=== PATIENT | male | born 1970 | race Caucasian/White ===

== ENCOUNTER 2017-03-20 18:01 | Emergency (ER) | payer BC ==
--- NOTE | 2017-03-20 19:42 | RAD ---
INDICATION: Foreign body. COMPARISON: There are no prior studies available for comparison. TECHNIQUE: AP and lateral images of the soft tissue of the neck were obtained. FINDINGS: The epiglottis and aryepiglottic folds appear to be within normal limits. The retropharyngeal soft tissues appear normal. The airway appears patent. Air is noted within the esophagus. No radiopaque foreign body is seen. IMPRESSION: NO RADIOPAQUE FOREIGN BODY IS SEEN.
[2017-03-20] MEDS ORDERED: LORazepam INJ* 2 MG/ML 1 ML VIAL IV ONE (20:32)
[2017-03-20] MEDS ORDERED: LORazepam INJ* 2 MG/ML 1 ML VIAL IM ONE (20:33)
[2017-03-20] MEDS ORDERED: Famotidine IV* 10 MG/ML 2 ML (20 mg) IV SLOW PU ONE (22:07)
[2017-03-20] MEDS ORDERED: diPHENhydraMINE IV* 50 MG/ML 1 ml VIAL (BENADRYL) IV ONE ×2 (22:07→22:48)
[2017-03-20] MEDS ORDERED: Dexamethasone IV* 4 MG/ML 1 ML (4 MG) IV SLOW PU ONE (22:08)
[2017-03-20 23:00] LABS: Hematocrit 45 % (42-52); Hemoglobin 14.8 g/dl (14.0-18.0); Mean Corpuscular HGB Conc 33 g/dl (31-36); Mean Corpuscular Hemoglobin 28 pg (27-31); Mean Corpuscular Volume 85 fL (80-94); Mean Platelet Volume 9 um3 (7.4-10.4); Red Blood Count 5.32 10^6/ul (4.0-5.4); Red Cell Distribution Width 14 % (10.5-15); White Blood Count 7.1 10^3/ul (3.5-10.8)
[2017-03-20 23:01] LABS: Albumin 4.3 g/dL (3.2-5.2); BUN/Creatinine Ratio 8.3 (8-20); Calcium 9.4 mg/dL (8.6-10.3); EGFR African American 83.5 (>60); EGFR Non-African American 64.9 (>60); Globulin 3.4 g/dL (2-4); Potassium 3.8 mmol/L (3.5-5.0); Total Bilirubin 0.5 mg/dL (0.2-1.0); Total Protein 7.7 g/dL (6.4-8.9)
[2017-03-20] MEDS ORDERED: LORazepam TAB(*) 1 MG PO ONE (23:45)
[2017-03-21 00:19] VITALS: BP 107/57
--- NOTE | 2017-03-21 10:57 | ED ---
Pepe Sanchez Erika, scribed for Leroy Jay MD on 03/20/17 at 2021 . Throat Pain/Nasal Congestion - HPI Summary HPI Summary: Patient is a 46-year-old male presenting to the ED with a CC of discomfort in his nasopharynx. He reports that symptoms started today after he took his Anne at 16:30 and had difficulty swallowing the pill. At 16:45 he took Benadryl as well, and states it felt as if it became lodged in the back of his throat. Pt states dysphagia, so has been spitting, and states his spit was at first pink after taking the Benadryl. Patient denies a foreign body feeling lower in his throat or chest. Patient reports that he feels as if the area is swollen, and states he feels a sticky mucus there. Patient states he has had similar symptoms in the past after eating. He does note episodes of chills, myalgias, and arthralgias a few days ago, but none since. Hx TMJ. - History of Current Complaint Chief Complaint: EDGeneral Time Seen by Provider: 03/20/17 18:19 Hx Obtained From: Patient Onset/Duration: Sudden Onset, Lasting Hours, Still Present Severity: Moderate Associated Signs And Symptoms: Positive: Dysphagia - Allergies/Home Medications Allergies/Adverse Reactions: Allergies Allergy/AdvReac Type Severity Reaction Status Date / Time Doxycycline AdvReac Intermediate Nausea And Verified 04/26/15 08:21 Vomiting PMH/Surg Hx/FS Hx/Imm Hx Endocrine/Hematology History: Denies: Hx Diabetes Cardiovascular History: Denies: Hx Hypertension, Hx Pacemaker/ICD Sensory History: Denies: Hx Hearing Aid Psychiatric History: Reports: Hx Panic Disorder - PANIC ATTACKS WHEN HE GETS STRESSED - Surgical History Surgery Procedure, Year, and Place: HERNIA. VERICOSE VEIN REMOVAL - Immunization History Date of Tetanus Vaccine: unknown Date of Influenza Vaccine: UTD Infectious Disease History: No Infectious Disease History: Denies: Traveled Outside the [place] in Last 30 Days - Family History Known Family History: Positive: Other - Colon CA - Social History Alcohol Use: None Hx Substance Use: No Substance Use Type: Reports: None Hx Tobacco Use: Yes Smoking Status (MU): Former Smoker Review of Systems ENT: Other - foreign body sensation nasopharynx Negative: Chest Pain All Other Systems Reviewed And Are Negative: Yes Physical Exam Triage Information Reviewed: Yes Vital Signs On Initial Exam: Initial Vitals Temp Pulse Resp BP Pulse Ox 98.1 F 63 22 126/67 100 03/20/17 18:03 03/20/17 18:03 03/20/17 18:03 03/20/17 18:03 03/20/17 18:03 Vital Signs Reviewed: Yes Appearance: Positive: Well-Appearing, No Pain Distress Skin: Positive: Warm, Skin Color Reflects Adequate Perfusion, Dry Head/Face: Positive: Normal Head/Face Inspection Eyes: Positive: Normal ENT: Positive: Normal ENT inspection, Pharynx normal Neck: Positive: Supple, Nontender Respiratory/Lung Sounds: Positive: Clear to Auscultation, Breath Sounds Present Cardiovascular: Positive: RRR Abdomen Description: Positive: Nontender, Soft Bowel Sounds: Positive: Present Musculoskeletal: Positive: Normal Neurological: Positive: Normal Psychiatric: Positive: Affect/Mood Appropriate - Harvey Coma Scale Coma Scale Total: 15 Diagnostics - Vital Signs Vital Signs Temp Pulse Resp BP Pulse Ox 03/20/17 18:21 20 03/20/17 18:13 98.1 F 63 22 126/67 100 03/20/17 18:03 98.1 F 63 22 126/67 100 - Laboratory Lab Results: Lab Results 03/20/17 03/20/17 Range/Units 22:30 22:30 WBC 7.1 (3.5-10.8) 10^3/ul RBC 5.32 (4.0-5.4) 10^6/ul Hgb 14.8 (14.0-18.0) g/dl Hct 45 (42-52) % MCV 85 (80-94) fL MCH 28 (27-31) pg MCHC 33 (31-36) g/dl RDW 14 (10.5-15) % Plt Count 194 (150-450) 10^3/ul MPV 9 (7.4-10.4) um3 Neut % (Auto) 68.4 (38-83) % Lymph % (Auto) 23.5 L (25-47) % Refugio % (Auto) 5.8 (1-9) % Eos % (Auto) 1.5 (0-6) % Baso % (Auto) 0.8 (0-2) % Absolute Neuts (auto) 4.9 (1.5-7.7) 10^3/ul Absolute Lymphs (auto) 1.7 (1.0-4.8) 10^3/ul Absolute Monos (auto) 0.4 (0-0.8) 10^3/ul Absolute Eos (auto) 0.1 (0-0.6) 10^3/ul Absolute Basos (auto) 0.1 (0-0.2) 10^3/ul Absolute Nucleated RBC 0.04 10^3/ul Nucleated RBC % 0.6 Sodium 139 (133-145) mmol/L Potassium 3.8 (3.5-5.0) mmol/L Chloride 104 (101-111) mmol/L Carbon Dioxide 28 (22-32) mmol/L Anion Gap 7 (2-11) mmol/L BUN 10 (6-24) mg/dL Creatinine 1.20 H (0.67-1.17) mg/dL Est GFR ( Amer) 83.5 (>60) Est GFR (Non-Af Amer) 64.9 (>60) BUN/Creatinine Ratio 8.3 (8-20) Glucose 90 (70-100) mg/dL Calcium 9.4 (8.6-10.3) mg/dL Total Bilirubin 0.50 (0.2-1.0) mg/dL AST 21 (13-39) U/L ALT 21 (7-52) U/L Alkaline Phosphatase 54 (34-104) U/L Total Protein 7.7 (6.4-8.9) g/dL Albumin 4.3 (3.2-5.2) g/dL Globulin 3.4 (2-4) g/dL Albumin/Globulin Ratio 1.3 (1-3) Result Diagrams: 03/20/17 22:30 03/20/17 22:30 Lab Statement: Any lab studies that have been ordered have been reviewed, and results considered in the medical decision making process. - Radiology Neck Soft Tissue XR Radiology Interpretation Completed By: Radiologist - IMPRESSION: NO RADIOPAQUE FOREIGN BODY IS SEEN. Re-Evaluation - Re-Evaluation First Eval Re-Evaluation Time: 20:33 Comment: Discussed negative XR result with patient. Patient agrees with plan for IM Ativan Second Eval Re-Evaluation Time: 22:06 Comment: Patient still reports he is unable to swallow. Pt states he believes symptoms are due to allergic reaction EENT Course/Dx - Course Course Of Treatment: I'm not sure what is going on with Mr. Aquino. On initial evaluation, he was continuously spitting saliva into a bag. His pasoterior pharynx was normal in appearaance and his exterior architecture felt normal. He had no wheezes or stridor.He felt that he may have an allergic reaction that made his throat swell and caused his benedryl to get stuck. A plain film revealed normal looking structures and I had another discussion with him. At that point he felt that he might have muscle spasms and requested a mucle relaxant and lorazepam had worked for him in the past. I felt that this was a good idea as he was quite anxiojus as well. About 40 minutes after IM ativan, I again had a long discussion with him. HE was not much better and I wasn't sure what we could be missing. We had no GI or ENT coverage and would not be able to take an endoscoopic look so i recommended that we start an IV and treat him with the usual alleric medications and get a CT of the soft tissues of the neck. He aggreed but by the time the RN got in the room with the IV and meds, he was feeling better, able to drink 2 cups of water and requesting D/C with ativan. I don't think anything dangerous is going on. - Diagnoses Provider Diagnoses: Dysphagia, Anxiety Discharge - Discharge Plan Condition: Stable Disposition: HOME Patient Education Materials: Dysphagia (ED) Referrals: Pedrito Gibson MD [Primary Care Provider] - Additional Instructions: Please follow up with your PCP. The documentation as recorded by the Pepe lackey Erika accurately reflects the service I personally performed and the decisions made by me, Leroy Jay MD.
== END 2017-03-21 00:18 | disposition home or self-care (01) ==
LOC: ED 18:01
DX: R13.10 Dysphagia, unspecified (principal); F41.1 Generalized anxiety disorder; Z87.891 Personal history of nicotine dependence
CPT/HCPCS: 36415; 70360; 80053; 85025; 96374; 96375; 99282; A9270-GY; J1100; J1200; J2060

== ENCOUNTER 2019-05-16 16:33 | Emergency (ER) | payer BC ==
[2019-05-16 17:05] LABS: ABS Basophils 0.1 10^3/ul (0-0.2); ABS Eosinophils 0.1 10^3/ul (0-0.6); ABS Lymphocytes 1.4 10^3/ul (1.0-4.8); ABS Monocytes 0.4 10^3/ul (0-0.8); ABS Neutrophils 2.8 10^3/ul (1.5-7.7); Eosinophil % 1.9 %; Hematocrit 44 % (42-52); Hemoglobin 14.6 g/dL (14.0-18.0); Lymphocyte % 29.2 %; Mean Corpuscular HGB Conc 33 g/dL (31-36); Mean Corpuscular Hemoglobin 28 pg (27-31); Mean Corpuscular Volume 86 fL (80-94); Mean Platelet Volume 8.7 fL (7.4-10.4); Platelet Count 179 10^3/uL (150-450); Red Blood Count 5.16 10^6 /uL (4.18-5.48); Red Cell Distribution Width 14 % (10-15); White Blood Count 4.7 10^3/uL (3.5-10.8)
--- OUTSIDE RECORDS SUMMARY | 2019-05-16 17:09 | XMS REPORT | Continuity of Care Document ---
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 Payers Date Identification Numbers Payment Provider Subscriber Effective: 2018 Policy Number: [id number] [facility] [employer] Aquino PayID: [id number] [address] [address] [place] [address] Problems Active Problems Provider Date Allergy to other foods Reji Almaraz MD Onset: 04/10/2019 Uncomplicated moderate persistent asthma Reji Almaraz MD Onset: Eosinophilic esophagitis Reji Almaraz MD Onset: 04/10/2019 Family History Date Family Member(s) Observation Comments General No Current Problems Social History Type Date Description Comments Sex Unknown Home Environment Has a window air conditioner Home Environment Unfinished Basement Home Environment The floors are wood Home Environment Negative For Uses hot water heating Home Environment Radiator Heat Smoke-Free 04/10/2019 Work is smoke-free Pets several cats Tobacco Use Start: Unknown End: Unknown Patient is a former smoker Smoking Status Reviewed: 04/10/19 Patient is a former smoker Allergies, Adverse Reactions, Alerts Active Allergies Reaction Severity Comments Date Almonds 03/30/2019 Hydrogenated Coconut Oil 03/30/2019 Doxycycline Free Text 03/30/2019 Lactose 03/30/2019 Medications Active Medications SIG Qnty Indications Ordering Provider Date Singulair 10mg by mouth 30tabs Reji Llanos 04/10/2019 10mg Tablets daily at bedtime MD Sung Ranitidine HCL take 1-2 tablets 60tabs Foorpessin, 02/16/2019 150mg at bedtime. Michaela MD Tablets Miralax Use 1 capful daily 1units Foorpessin, 09/12/2018 3350NF Powder or as needed for Michaela MD constipation. Anne Allergy 1 po bid prn 60tabs Pedrito Gibson, 12/13/2017 60mg allergy symptoms MD Tablets Sumatriptan 1 spray in nostril 1units G43.109 Pedrito Gibson, 06/08/2016 20mg/Act prn for migraine. MD Solution may repeat in 2 hours. Lorazepam 1/4 -1/2 twice a 30tabs Pedrito Gibson, 06/18/2015 0.5mg Tablets day as needed for MD anxiety Imitrex take one tablet by 9tabs G43.109 Pedrito Gibson, 05/10/2015 50mg Tablets mouth at first MD sign of headache - may repeat dose in 2 hours Epipen 2-Jonn use as directed Unknown 0.3mg/0.3ML Solution Auto-Inject Levocetirizine Daily Unknown Dihydrochloride 5mg Tablets Clotrimazole Unknown 1% Cream Epinephrine Inject One Pen For Unknown 0.3mg/0.3ML Anaphylactic Solution Auto-Inject Reaction And Repeat If Needed Call 911 Vital Signs Date Vital Result Comment 04/10/2019 3:22pm BP Systolic 96 mmHg BP Diastolic 65 mmHg Height 64 inches 5'4" Weight 125.00 lb BMI (Body Mass Index) 21.5 kg/m2 Heart Rate 66 /min Respiratory Rate 18 /min O2 % BldC Oximetry 98 % Procedures Date Code Description Status 04/10/2019 01141 Nitric Oxide Gas Determination Completed 04/10/2019 94670 Allergy Tests Percutaneous W/ Allergenic Extracts Completed 04/10/2019 64249 Spirometry Completed Encounters Type Date Location Provider Dx Diagnosis Office Visit 04/10/2019 Sathish Almaraz, K20.0 Eosinophilic 3:00p esophagitis Z91.018 Allergy to other foods J45.40 Moderate persistent asthma, uncomplicated Plan of Treatment Future Appointment(s):05/08/2019 2:00 pm - Freda Pike NP at [facility]/19/ 2019 1:30 pm - ELEANOR Rogers at [facility]
--- OUTSIDE RECORDS SUMMARY | 2019-05-16 17:09 | XMS REPORT | Continuity of Care Document ---
:1970 External Reference #:[id number] Author Name Miranda Odom Care Team Providers Name Role Phone Michaela Lopez MD Care Team Information Curtain Drier Unavailable Payers Date Identification Numbers Payment Provider Subscriber Effective: 2018 Policy Number: [id number] [facility] [employer] Aqu[employer] PayID: [id number] [address] [address] [place] [address] Problems Active Problems Provider Date Allergy to [...] is a former smoker Smoking Status Reviewed: 05/06/19 Patient is a former smoker Allergies, Adverse [...] 911 Vital Signs Date Vital Result Comment 05/08/2019 2:18pm BP Systolic 112 mmHg BP Diastolic 64 mmHg Height 64 inches 5'4" Weight 125.00 lb BMI (Body Mass Index) 21.5 kg/m2 Heart Rate 67 /min Respiratory Rate 16 /min Body Temperature 96.5 F O2 % BldC Oximetry 98 % 04/10/2019 3:22pm BP Systolic 96 mmHg BP Diastolic 65 mmHg Height 64 inches 5'4" Weight 125.00 lb BMI (Body Mass Index) 21.5 kg/m2 Heart Rate 66 /min Respiratory Rate 18 /min O2 % BldC Oximetry 98 % Procedures Date Code Description Status 04/10/2019 43094 Nitric Oxide Gas Determination Completed 04/10/2019 93404 Allergy Tests Percutaneous W/ Allergenic Extracts Completed 04/10/2019 68011 Spirometry Completed Encounters Type Date Location Provider Dx Diagnosis Office Visit 05/06/2019 1:30p ELEANOR Bryant K20.0 Eosinophilic esophagitis Z91.018 Allergy to other foods J45.40 Moderate persistent asthma, uncomplicated Office Visit 04/10/2019 3:00p Sathish Llanos K20.0 Eosinophilic MD Sung esophagitis Z91.018 Allergy to other foods J45.40 Moderate persistent asthma, uncomplicated Plan of Treatment 05/06/2019 - JONN Rogers20.0 Eosinophilic ujsgfhxkjpoC39.018 Allergy to other foodsComments:Patient tested negative at first read to all 24 food substances placed on his skin. Patient to return in 2 days (48 hours) for final read of his skin patch test. Patient to continue to avoid antihistamines until final read. Patient to avoid direct water (showering) on his back until after final patch read.J45.40 Moderate persistent asthma, uncomplicated
--- OUTSIDE RECORDS SUMMARY | 2019-05-16 17:09 | XMS REPORT | Continuity of Care Document ---
:1970 External Reference #:[id number] Author Name Reji Almaraz MD Address [address] [facility] [facility] [address] [place] [address] Care Team Providers Name Role Phone Michaela Lopez MD Care Team Information Orthodontic Band Maker Unavailable Payers Date Identification Numbers Payment Provider Subscriber Effective: 2018 Policy Number: [id number] [facility] [employer] Aquino PayID: [id number] [address] [address] [place] [address] Problems Active Problems Provider Date Allergy to [...] Llanos 04/10/2019 10mg Tablets daily at bedtime Almaraz, MD Ranitidine HCL take 1-2 tablets 60tabs Foorpessin, [...] Solution may repeat in 2 hours. Lorazepam /4 -1/2 twice a 30tabs Pedrito Gibson, 06/18/2015 [...] % Procedures Date Code Description Status 04/10/2019 49248 Nitric Oxide Gas Determination Completed 04/10/2019 75743 Allergy Tests Percutaneous W/ Allergenic Extracts Completed 04/10/2019 04462 Spirometry Completed Encounters Type Date Location Provider Dx Diagnosis Office Visit 05/06/2019 1:30p ELEANOR Bryant K20.0 Eosinophilic esophagitis Z91.018 Allergy to other foods J45.40 Moderate persistent asthma, uncomplicated Office Visit 04/10/2019 3:00p Sathish Llanos K20.0 Yvonne Almaraz MD esophagitis Z91.018 Allergy to other foods J45.40 Moderate persistent asthma, uncomplicated Plan of Treatment Future Appointment(s):05/08/2019 2:00 pm - Freda Pike NP at [id number] - David Dean, PAK20.0 Eosinophilic apanmthtghyI43.018 Allergy to other foodsComments:Patient tested negative at [...]
--- OUTSIDE RECORDS SUMMARY | 2019-05-16 17:09 | XMS REPORT | Continuity of Care Document ---
:1970 External Reference #:[id number] Author Name Reji Almaraz MD Address [address] [place] [address] Care Team Providers Name Role Phone Michaela Lopez MD Care Team Information Beater Lead Unavailable Payers Date Identification Numbers Payment Provider Subscriber Effective: 2018 Policy Number: [id number] [facility] [employer] Aqu[employer] PayID: [id number] [address] [address] [place] [address] Problems Active Problems Provider Date Allergy to [...] Medications SIG Qnty Indications Ordering Provider Date Ventolin HFA inhale 2 puffs by ashok J45.40 Freda Pike NP 05/08/2019 inhalation route 108(90Base) mcg/Act every 4 hours as Aerosol needed1 Singulair 10mg by mouth 30tabs Christopher A. 04/10/2019 10mg Tablets daily at bedtime MD [...] /min O2 % BldC Oximetry 98 % Results Test Date Facility Test Result H/L Range Note Order 05/08/2019 [facility] Nitric Oxide <pending> Order 05/08/2019 [facility] Nitric Oxide <pending> Procedures Date Code Description Status 05/08/2019 57864 Allergy Test, Patch Or Application Completed 05/08/2019 92659 Nitric Oxide Gas Determination Completed 04/10/2019 97424 Nitric Oxide Gas Determination Completed 04/10/2019 19273 Allergy Tests Percutaneous W/ Allergenic Extracts Completed 04/10/2019 99775 Spirometry Completed Encounters Type Date Location Provider Dx Diagnosis Office Visit 05/08/2019 Sathish Pike NP K20.0 Eosinophilic 2:00p esophagitis Z91.018 Allergy to other foods J45.40 Moderate persistent asthma, uncomplicated Office Visit 05/06/2019 1:30p ELEANOR Bryant K20.0 Eosinophilic esophagitis Z91.018 Allergy to other foods J45.40 Moderate persistent asthma, uncomplicated Office Visit 04/10/2019 3:00p Sathish Llanos K20.0 Eosinophilic MD Sung esophagitis Z91.018 Allergy to other foods J45.40 Moderate persistent asthma, uncomplicated Plan of Treatment 05/08/2019 - Freda Pike NPK20.0 Eosinophilic esophagitisComments:No positives per [facility]. Follow up with GI. Continue current medical plan. The restZ91.018 Allergy to other gziovA69.40 Moderate persistent asthma, uncomplicatedNew Medication:Ventolin HFA 108(90 Base) mcg/Act - inhale 2 puffs by inhalation route every 4 hours as ithjya2Rleatwlr:Niox today 43ppb. Improved. Rescue inhaler ventolin ii inhalations every 4-6 hours as needed.Follow-up 6 monthsGreater than 50% of the 10-minute visit was spent in [id number] discussion of the testing results and treatment options.
[2019-05-16 17:10] LABS: INR 1.11 (0.82-1.09)
[2019-05-16 17:24] LABS: Albumin 4.4 g/dL (3.2-5.2); Albumin/Globulin Ratio 1.5 (1-3); BUN/Creatinine Ratio 5.5 (8-20); Calcium 9.3 mg/dL (8.6-10.3); EGFR African American 85.7 (>60); EGFR Non-African American 70.9 (>60); Potassium 3.6 mmol/L (3.5-5.0); Total Bilirubin 0.5 mg/dL (0.2-1.0); Total Protein 7.4 g/dL (6.4-8.9)
--- NOTE | 2019-05-16 20:37 | ED ---
Complex/Multi-Sys Presentation - HPI Summary HPI Summary: A 49 y/o male presents to [facility] with a chief complaint of chest tightness today. He notes that when he stands up he has chest tightness and SOB. He was recently diagnosed with asthma. He also notes that his chest tightness radiates to his back. At triage he rated his pain as a 1/10 in severity. He is taking Singulair for asthma and Lorazepam for anxiety as needed. He notes that Lorazepam alleviates his chest tightness. - History Of Current Complaint Chief Complaint: EDWeakness Time Seen by Provider: 05/16/19 20:26 Hx Obtained From: Patient Onset/Duration: Sudden Onset, Lasting Hours, Still Present Timing: Intermittent, Lasting: - upon standing Severity Currently: Mild Severity Initially: Mild Location: Pain At: - chest Aggravating Factor(s): standing Alleviating Factor(s): Lorazepam Associated Signs And Symptoms: Positive: SOB. Negative: Fever - Allergies/Home Medications Allergies/Adverse Reactions: Allergies Allergy/AdvReac Type Severity Reaction Status Date / Time almond Allergy Unknown Verified 08/29/18 14:06 Reaction Details coconut Allergy Unknown Verified 08/29/18 14:06 Reaction Details lactose Allergy Unknown Verified 08/29/18 14:06 Reaction Details MS Doxycycline [Doxycycline] AdvReac Intermediate Nausea And Verified 04/26/15 08:21 Vomiting PMH/Surg Hx/FS Hx/Imm Hx Endocrine/Hematology History: Denies: Hx Diabetes Cardiovascular History: Denies: Hx Hypertension, Hx Pacemaker/ICD Sensory History: Denies: Hx Hearing Aid Psychiatric History: Reports: Hx Panic Disorder - PANIC ATTACKS WHEN HE GETS STRESSED - Surgical History Surgery Procedure, Year, and Place: HERNIA. VERICOSE VEIN REMOVAL - Immunization History Date of Tetanus Vaccine: unknown Date of Influenza Vaccine: UTD Immunizations Up to Date: Yes Infectious Disease History: No Infectious Disease History: Denies: Traveled Outside the [place] in Last 30 Days - Family History Known Family History: Positive: Other - Colon [place] - Social History Alcohol Use: None Hx Substance Use: No Substance Use Type: Reports: None Hx Tobacco Use: Yes Smoking Status (MU): Former Smoker Review of Systems Negative: Fever Positive: Chest Pain Positive: Shortness Of Breath All Other Systems Reviewed And Are Negative: Yes Physical Exam - Summary Physical Exam Summary: VITAL SIGNS: Reviewed. GENERAL: Patient is a well-developed and nourished MALE who is lying comfortable in the stretcher. Patient is not in any acute respiratory distress. HEAD AND FACE: No signs of trauma. No ecchymosis, hematomas or skull depressions. No sinus tenderness. EYES: PERRLA, EOMI x 2, No injected conjunctiva, no nystagmus. EARS: Hearing grossly intact. Ear canals and tympanic membranes are within normal limits. MOUTH: Oropharynx within normal limits. NECK: Supple, trachea is midline, no adenopathy, no JVD, no carotid bruit, no c- spine tenderness, neck with full ROM CHEST: Symmetric, no tenderness at palpation LUNGS: Clear to auscultation bilaterally. No wheezing or crackles. CVS: Regular rate and rhythm, S1 and S2 present, no murmurs or gallops appreciated. ABDOMEN: Soft, non-tender. No signs of distention. No rebound no guarding, and no masses palpated. Bowel sounds are normal. EXTREMITIES: FROM in all major joints, no edema, no cyanosis or clubbing. NEURO: Alert and oriented x 3. No acute neurological deficits. Speech is normal and follows commands. SKIN: Dry and warm Triage Information Reviewed: Yes Vital Signs On Initial Exam: Initial Vitals Temp Pulse Resp BP Pulse Ox 98.1 F 81 18 109/71 98 05/16/19 16:40 05/16/19 16:40 05/16/19 16:40 05/16/19 16:40 05/16/19 16:40 Vital Signs Reviewed: Yes Diagnostics - Vital Signs Vital Signs Temp Pulse Resp BP Pulse Ox 05/16/19 20:06 55 05/16/19 18:51 98.1 F 60 18 114/67 98 05/16/19 16:40 98.1 F 81 18 109/71 98 - Laboratory Lab Results: Lab Results 05/16/19 05/16/19 05/16/19 Range/Units 16:58 16:58 16:58 WBC 4.7 (3.5-10.8) 10^3/uL RBC 5.16 (4.18-5.48) 10^6 /uL Hgb 14.6 (14.0-18.0) g/dL Hct 44 (42-52) % MCV 86 (80-94) fL MCH 28 (27-31) pg MCHC 33 (31-36) g/dL RDW 14 (10-15) % Plt Count 179 (150-450) 10^3/uL MPV 8.7 (7.4-10.4) fL Neut % (Auto) 58.7 % Lymph % (Auto) 29.2 % Monroe % (Auto) 9.1 % Eos % (Auto) 1.9 % Baso % (Auto) 1.1 % Absolute Neuts (auto) 2.8 (1.5-7.7) 10^3/ul Absolute Lymphs (auto) 1.4 (1.0-4.8) 10^3/ul Absolute Monos (auto) 0.4 (0-0.8) 10^3/ul Absolute Eos (auto) 0.1 (0-0.6) 10^3/ul Absolute Basos (auto) 0.1 (0-0.2) 10^3/ul Absolute Nucleated RBC 0.0 10^3/ul Nucleated RBC % 0.0 INR (Anticoag Therapy) 1.11 H (0.82-1.09) Sodium 138 (135-145) mmol/L Potassium 3.6 (3.5-5.0) mmol/L Chloride 104 (101-111) mmol/L Carbon Dioxide 31 (22-32) mmol/L Anion Gap 3 (2-11) mmol/L BUN 6 (6-24) mg/dL Creatinine 1.10 (0.67-1.17) mg/dL Est GFR ( Amer) 85.7 (>60) Est GFR (Non-Af Amer) 70.9 (>60) BUN/Creatinine Ratio 5.5 L (8-20) Glucose 102 H (70-100) mg/dL Calcium 9.3 (8.6-10.3) mg/dL Total Bilirubin 0.50 (0.2-1.0) mg/dL AST 21 (13-39) U/L ALT 22 (7-52) U/L Alkaline Phosphatase 55 (34-104) U/L Troponin I 0.00 (<0.04) ng/mL Total Protein 7.4 (6.4-8.9) g/dL Albumin 4.4 (3.2-5.2) g/dL Globulin 3.0 (2-4) g/dL Albumin/Globulin Ratio 1.5 (1-3) 05/16/19 Range/Units 19:52 WBC (3.5-10.8) 10^3/uL RBC (4.18-5.48) 10^6 /uL Hgb (14.0-18.0) g/dL Hct (42-52) % MCV (80-94) fL MCH (27-31) pg MCHC (31-36) g/dL RDW (10-15) % Plt Count (150-450) 10^3/uL MPV (7.4-10.4) fL Neut % (Auto) % Lymph % (Auto) % Monroe % (Auto) % Eos % (Auto) % Baso % (Auto) % Absolute Neuts (auto) (1.5-7.7) 10^3/ul Absolute Lymphs (auto) (1.0-4.8) 10^3/ul Absolute Monos (auto) (0-0.8) 10^3/ul Absolute Eos (auto) (0-0.6) 10^3/ul Absolute Basos (auto) (0-0.2) 10^3/ul Absolute Nucleated RBC 10^3/ul Nucleated RBC % INR (Anticoag Therapy) (0.82-1.09) Sodium (135-145) mmol/L Potassium (3.5-5.0) mmol/L Chloride (101-111) mmol/L Carbon Dioxide (22-32) mmol/L Anion Gap (2-11) mmol/L BUN (6-24) mg/dL Creatinine (0.67-1.17) mg/dL Est GFR ( Amer) (>60) Est GFR (Non-Af Amer) (>60) BUN/Creatinine Ratio (8-20) Glucose (70-100) mg/dL Calcium (8.6-10.3) mg/dL Total Bilirubin (0.2-1.0) mg/dL AST (13-39) U/L ALT (7-52) U/L Alkaline Phosphatase (34-104) U/L Troponin I 0.00 (<0.04) ng/mL Total Protein (6.4-8.9) g/dL Albumin (3.2-5.2) g/dL Globulin (2-4) g/dL Albumin/Globulin Ratio (1-3) Result Diagrams: 05/16/19 16:58 05/16/19 16:58 Lab Statement: Any lab studies that have been ordered have been reviewed, and results considered in the medical decision making process. - EKG 16:45 Cardiac Rate: NL - 68 bpm EKG Rhythm: Sinus Rhythm Summary of EKG Findings: EKG at 16:45 showed NSR at 68 bpm. Normal axis. Normal interval. No ischemic changes. Complex Multi-Symp Course/Dx Course Of Treatment: A 49 y/o male presents to [facility] with a chief complaint of chest tightness today. He notes that when he stands up he has chest tightness and SOB. The physical exam was unremrarkable. EKG at 16:45 showed NSR at 68 bpm. Normal axis. Normal interval. No ischemic changes. Blood work and chemistries obtained and are WNL. Pt has a normal EKG, two negative troponins, and his HEART score is 1. The patient will be discharged home and folow up with his PCP. The patient is agreeable with this plan. - Diagnoses Provider Diagnoses: Atypical chest pain Discharge - Sign-Out/Discharge Documenting (check all that apply): Patient Departure - DC Patient Received Moderate/Deep Sedation with Procedure: No - Discharge Plan Condition: Stable Disposition: HOME Patient Education Materials: Chest Pain (DC) Referrals: Pedrito Gibson MD [Primary Care Provider] - 3 Days Additional Instructions: Get a stress test as an outpatient PLEASE RETURN TO THE ED IMMEDIATELY FOR WORSENING OR CONCERNING SYMPTOMS. - Billing Disposition and Condition Condition: STABLE Disposition: Home - Attestation Statements Document Initiated by Fidel: Yes Documenting Scribe: Woodrow Joseph Provider For Whom Fidel is Documenting (Include Credential): Alex Hagen MD Scribe Attestation: Woodrow Sanchez, scribed for Alex Hagen MD on 05/17/19 at 0509. Scribe Documentation Reviewed: Yes Provider Attestation: The documentation as recorded by the Woodrow lackey accurately reflects the service I personally performed and the decisions made by me, Alex Hagen MD Status of Scribe Document: Viewed
[2019-05-16 21:23] VITALS: BP 97/68
== END 2019-05-16 21:22 | disposition home or self-care (01) ==
LOC: ED 16:33
DX: R07.89 Other chest pain (principal); F41.9 Anxiety disorder, unspecified; Z79.899 Other long term (current) drug therapy; Z87.891 Personal history of nicotine dependence
CPT/HCPCS: 36415; 80053; 84484; 85025; 85610; 93005; 99283

== ENCOUNTER 2019-12-07 02:01 | Emergency (ER) | payer BC ==
--- OUTSIDE RECORDS SUMMARY | 2019-12-07 02:14 | XMS REPORT | Continuity of Care Document ---
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 [phone] Problems Active Problems Provider Date Environmental allergy Nito Mclean MD Onset: 05/30/2017 Hemorrhage of rectum and anus Sandy Giraldo PA-C Onset: 07/01/2018 Eosinophilic esophagitis Sandy Giraldo PA-C Onset: 08/07/2017 Social History Type Date Description Comments Sex Unknown Tobacco Use Start: Unknown Patient has never smoked Smoking Status Reviewed: 10/23/19 Patient has never smoked Allergies, Adverse Reactions, Alerts Active Allergies Reaction Severity Comments Date Coconut 07/18/2015 Almonds 08/01/2012 Lactose 08/01/2012 Doxycycline yeast infection 02/05/2012 Environmental 07/01/2018 Lots Of Foods 07/01/2018 Soy 04/30/2019 Buckwheat Allergenic Extract 04/30/2019 Medications Active Medications SIG Qnty Indications Ordering Date Provider Clarithromycin take 1 tablet 28tabs Michaela 10/23/2019 500mg twice daily x 14 MD [place] Tablets days Amoxicillin take 2 capsules 56caps Michaela 10/23/2019 500mg Capsules twice daily x 14 MD [place] days. Omeprazole Take 1 capsule 30caps Michaela 10/23/[address] by mouth twice MD [place] daily. take 30-60 minutes before a meal. Miralax Use 1 capful 1Bottle Michaela 09/12/2018 Powder daily or as MD [place] needed for constipation. Anne Allergy 1 po bid prn 60tabs ArthurPedrito Byron, 12/13/2017 60mg allergy symptoms MD Tablets Sumatriptan 1 spray in 1units G43.109 ArthurPedrito Byron, 06/08/2016 20mg/Act nostril prn for MD Solution migraine. may repeat in 2 hours. Lorazepam 1/4 -1/2 twice a 30tabs Pedrito Gibson, 06/18/2015 0.5mg Tablets day as needed MD for anxiety Imitrex take one tablet 9tabs G43.109 ArthurPedrito Byron, 05/10/2015 50mg Tablets by mouth at MD first sign of headache - may repeat dose in 2 hours Epipen 2-Jonn use as directed Unknown 0.3mg/0.3ML Solution Auto-Inject Clotrimazole Unknown 1% Cream Magnesium twice a day Unknown Diphenhydramine HCL takes 1/2 to 1 Unknown 25mg prn Capsules Immunizations Description No Information Available Vital Signs Date Vital Result Comment 10/23/2019 3:09pm Height 65 inches 5'5" Weight 130.00 lb BP Systolic 117 mmHg BP Diastolic 63 mmHg Heart Rate 66 /min BMI (Body Mass Index) 21.6 kg/m2 06/08/2019 3:06pm Height 65 inches 5'5" Weight 132.00 lb BMI (Body Mass Index) 22.0 kg/m2 Results Test Acquired Date Facility Test Result H/L Range Note Laboratory test 08/21/2019 [facility] [place] Surgical SEE RESULT 1 finding Pathology BELOW 1 SEE RESULT BELOW Name: KRZYSZTOF MALDONADO : [address]: Michaela Hugo MD Acct: [id number] Unit: [id number] AGE: 49 Location: [facility] Re08/21/19 SEX: M Status: DEP REF SPEC: [id number] JHOAN: 08/21/19- SUBM DR: Michaela Guzman MD REQ: [id number] RECD: 08/21/191434 STATUS: STEF COHEN DR: Pedrito Gibson MD _ ORDERED: LEVEL 4/5 FINAL DIAGNOSIS 1. Stomach, antrum, biopsy: -- Moderate to severe chronic active gastritis. See comment. 2. Stomach, body, biopsy: -- Moderate chronic active gastritis. See comment. 3. Small bowel, duodenum, biopsy: -- Small bowel mucosa with normal villous architecture and no significant pathologic abnormality. -- No villous blunting or increase in lamina propria lymphoplasmacytic infiltrate identified. 4. Distal esophagus, biopsy: --Superficial squamous mucosa with severe esophagitis with eosinophilia ( greater than 50 eosinophil/HPF). See comment. -- No glandular tissue identified. 5. Midesophagus,, biopsy: -- Superficial squamous mucosa with severe esophagitis with eosinophilia ( greater than 50 eosinophil/HPF). See comment. -- No glandular tissue identified. Comment: An immunohistochemical stain for Helicobacter pylori-like organisms is pending on part 1 and will be reported in an addendum. Parts 4 and 5 both demonstrate abundant superficial squamous epithelium and mucosal fragments demonstrating intense eosinophilic inflammation with basal hyperchromasia and hypercellularity with elongated vascular papillae. The 2 areas are morphologically indistinguishable. The differential diagnosis includes eosinophilic esophagitis extending inferiorly to the gastroesophageal junction, severe reflux esophagitis extending to the mid esophagus, or combination of both. Correlation with clinical and endoscopic findings is recommended. CONTINUED ON NEXT PAGE DEPARTMENT OF PATHOLOGY, [address] [place] [address] Chau Fisher M.D. Director [facility] # [id number] CLINICAL HISTORY Eosinophilic esophagitis history POST-OPERATIVE DIAGNOSIS EGD: gastroesophageal junction at 38 cm; small tear with scope; trachealization; furrowing; gastric ??? edematous look unknown erythema biopsy; duodenum ??? normal; biopsy GROSS DESCRIPTION 1. The specimen is received in formalin labeled, Biopsy Gastric Antrum, and consists of a 0.6 x 0.5 x 0.2 cm aggregate of lu-white irregular soft tissue fragments which is submitted entirely in one cassette. 2. The specimen is received in formalin labeled, Biopsy Gastric Body, and consists of a 0.9 x 0.6 x 0.2 cm aggregate of lu irregular soft tissue fragments which is submitted entirely in one cassette. 3. The specimen is received in formalin labeled, Biopsy Duodenum, and consists of a 0.9 x 0.4 by up to 0.2 cm aggregate of lu irregular soft tissue fragments which is submitted entirely in one cassette. 4. The specimen is received in formalin labeled, Biopsy Distal Esophagus, and consists of a 0.6 x 0.4 x 0.1 cm aggregate of lu-white irregular soft tissue fragments which is submitted entirely in one cassette. 5. The specimen is received in formalin labeled, Biopsy Mid Esophagus, and consists of a 0.5 x 0.4 x 0.2 cm aggregate of lu irregular soft tissue fragments which is submitted entirely in one cassette. Signed by and Reported on: Chau Fisher MD 06/05 1637 END OF REPORT DEPARTMENT OF PATHOLOGY, [address] [place] [address] Chau Fisher M.D. Director [facility] # [id number] SEE RESULT BELOW Name: KRZYSZTOF MALDONADO : [address]: Michaela Hugo MD Acct: [id number] Unit: [id number] AGE: 49 Location: ENDO Re08/21/19 SEX: M Status: DEP REF SPEC: [id number] JHOAN: 08/21/19- SUBM DR: Michaela Guzman MD REQ: [id number] RECD: 08/21/19 STATUS: STEF COHEN DR: Pedrito Gibson MD _ ORDERED: LEVEL 4/5 FINAL DIAGNOSIS 1. Stomach, antrum, biopsy: -- Moderate to severe chronic active gastritis. See comment. 2. Stomach, body, biopsy: -- Moderate chronic active gastritis. See comment. 3. Small bowel, duodenum, biopsy: -- Small bowel mucosa with normal villous architecture and no significant pathologic abnormality. -- No villous blunting or increase in lamina propria lymphoplasmacytic infiltrate identified. 4. Distal esophagus, biopsy: --Superficial squamous mucosa with severe esophagitis with eosinophilia ( greater than 50 eosinophil/HPF). See comment. -- No glandular tissue identified. 5. Midesophagus,, biopsy: -- Superficial squamous mucosa with severe esophagitis with eosinophilia ( greater than 50 eosinophil/HPF). See comment. -- No glandular tissue identified. Comment: An immunohistochemical stain for Helicobacter pylori-like organisms is pending on part 1 and will be reported in an addendum. Parts 4 and 5 both demonstrate abundant superficial squamous epithelium and mucosal fragments demonstrating intense eosinophilic inflammation with basal hyperchromasia and hypercellularity with elongated vascular papillae. The 2 areas are morphologically indistinguishable. The differential diagnosis includes eosinophilic esophagitis extending inferiorly to the gastroesophageal junction, severe reflux esophagitis extending to the mid esophagus, or combination of both. Correlation with clinical and endoscopic findings is recommended. CONTINUED ON NEXT PAGE DEPARTMENT OF PATHOLOGY, [address] [place] [address] Chau Fisher M.D. Director [facility] # [id number] CLINICAL HISTORY Eosinophilic esophagitis history POST-OPERATIVE DIAGNOSIS EGD: gastroesophageal junction at 38 cm; small tear with scope; trachealization; furrowing; gastric ??? edematous look unknown erythema biopsy; duodenum ??? normal; biopsy GROSS DESCRIPTION 1. The specimen is received in formalin labeled, Biopsy Gastric Antrum, and consists of a 0.6 x 0.5 x 0.2 cm aggregate of lu-white irregular soft tissue fragments which is submitted entirely in one cassette. 2. The specimen is received in formalin labeled, Biopsy Gastric Body, and consists of a 0.9 x 0.6 x 0.2 cm aggregate of lu irregular soft tissue fragments which is submitted entirely in one cassette. 3. The specimen is received in formalin labeled, Biopsy Duodenum, and consists of a 0.9 x 0.4 by up to 0.2 cm aggregate of lu irregular soft tissue fragments which is submitted entirely in one cassette. 4. The specimen is received in formalin labeled, Biopsy Distal Esophagus, and consists of a 0.6 x 0.4 x 0.1 cm aggregate of lu-white irregular soft tissue fragments which is submitted entirely in one cassette. 5. The specimen is received in formalin labeled, Biopsy Mid Esophagus, and consists of a 0.5 x 0.4 x 0.2 cm aggregate of lu irregular soft tissue fragments which is submitted entirely in one cassette. Signed by and Reported on: Chau Fisher MD 06/05 1637 END OF REPORT DEPARTMENT OF PATHOLOGY, [address] [place] [address], [place] [address] Chau Fisher M.D. Director [facility] # [id number] SEE RESULT BELOW Name: KRZYSZTOF MALDONADO : [address]: Michaela Hugo MD Acct: [id number] Unit: [id number] AGE: 49 Location: ENDO Re08/21/19 SEX: M Status: DEP REF SPEC: [id number] JHOAN: 08/21/19- SUBM DR: Michaela Guzman MD REQ: [id number] RECD: 08/21/19 STATUS: STEF COHEN DR: Pedrito Gibson MD _ ORDERED: LEVEL 4/5 FINAL DIAGNOSIS 1. Stomach, antrum, biopsy: -- Moderate to severe chronic active gastritis. See comment. 2. Stomach, body, biopsy: -- Moderate chronic active gastritis. See comment. 3. Small bowel, duodenum, biopsy: -- Small bowel mucosa with normal villous architecture and no significant pathologic abnormality. -- No villous blunting or increase in lamina propria lymphoplasmacytic infiltrate identified. 4. Distal esophagus, biopsy: --Superficial squamous mucosa with severe esophagitis with eosinophilia ( greater than 50 eosinophil/HPF). See comment. -- No glandular tissue identified. 5. Midesophagus,, biopsy: -- Superficial squamous mucosa with severe esophagitis with eosinophilia ( greater than 50 eosinophil/HPF). See comment. -- No glandular tissue identified. Comment: An immunohistochemical stain for Helicobacter pylori-like organisms is pending on part 1 and will be reported in an addendum. Parts 4 and 5 both demonstrate abundant superficial squamous epithelium and mucosal fragments demonstrating intense eosinophilic inflammation with basal hyperchromasia and hypercellularity with elongated vascular papillae. The 2 areas are morphologically indistinguishable. The differential diagnosis includes eosinophilic esophagitis extending inferiorly to the gastroesophageal junction, severe reflux esophagitis extending to the mid esophagus, or combination of both. Correlation with clinical and endoscopic findings is recommended. CONTINUED ON NEXT PAGE DEPARTMENT OF PATHOLOGY, [address] [place] [address] Chau Fisher M.D. Director [facility] # [id number] CLINICAL HISTORY Eosinophilic esophagitis history POST-OPERATIVE DIAGNOSIS EGD: gastroesophageal junction at 38 cm; small tear with scope; trachealization; furrowing; gastric ??? edematous look unknown erythema biopsy; duodenum ??? normal; biopsy GROSS DESCRIPTION 1. The specimen is received in formalin labeled, Biopsy Gastric Antrum, and consists of a 0.6 x 0.5 x 0.2 cm aggregate of lu-white irregular soft tissue fragments which is submitted entirely in one cassette. 2. The specimen is received in formalin labeled, Biopsy Gastric Body, and consists of a 0.9 x 0.6 x 0.2 cm aggregate of lu irregular soft tissue fragments which is submitted entirely in one cassette. 3. The specimen is received in formalin labeled, Biopsy Duodenum, and consists of a 0.9 x 0.4 by up to 0.2 cm aggregate of lu irregular soft tissue fragments which is submitted entirely in one cassette. 4. The specimen is received in formalin labeled, Biopsy Distal Esophagus, and consists of a 0.6 x 0.4 x 0.1 cm aggregate of lu-white irregular soft tissue fragments which is submitted entirely in one cassette. 5. The specimen is received in formalin labeled, Biopsy Mid Esophagus, and consists of a 0.5 x 0.4 x 0.2 cm aggregate of lu irregular soft tissue fragments which is submitted entirely in one cassette. Signed by and Reported on: Chau Fisher MD 06/05 1637 END OF REPORT DEPARTMENT OF PATHOLOGY, [address] [place] [address] Chau Fisher M.D. Director [facility] # [id number] SEE RESULT BELOW Name: ERICAKRZYSZTOF : [address]: Michaela Hugo MD Acct: [id number] Unit: [id number] AGE: 49 Location: ENDO Re08/21/19 SEX: M Status: DEP REF SPEC: [id number] JHOAN: 08/21/19- SUBM DR: Michaela Guzman MD REQ: [id number] RECD: 08/21/19-2483 STATUS: STEF COHEN DR: Pedrito Gibson MD _ ORDERED: LEVEL 4/5, IMMUNO-FIRST ADDENDUM An H. pylori immunohistochemical stain, with appropriately reacting controls , was performed in the evaluation of specimen 1 and is POSITIVE for Helicobacter organisms. Addendum Signed (signature on file) Ana Rosa Rider MD 08/06 1118 FINAL DIAGNOSIS 1. Stomach, antrum, biopsy: -- Moderate to severe chronic active gastritis. See comment. 2. Stomach, body, biopsy: -- Moderate chronic active gastritis. See comment. 3. Small bowel, duodenum, biopsy: -- Small bowel mucosa with normal villous architecture and no significant pathologic abnormality. -- No villous blunting or increase in lamina propria lymphoplasmacytic infiltrate identified. 4. Distal esophagus, biopsy: --Superficial squamous mucosa with severe esophagitis with eosinophilia ( greater than 50 eosinophil/HPF). See comment. -- No glandular tissue identified. 5. Midesophagus,, biopsy: -- Superficial squamous mucosa with severe esophagitis with eosinophilia ( greater than 50 eosinophil/HPF). See comment. -- No glandular tissue identified. Comment: An immunohistochemical stain for Helicobacter pylori-like organisms is pending on part 1 and will be reported in an addendum. CONTINUED ON NEXT PAGE DEPARTMENT OF PATHOLOGY, [address] [place] [address] Chau Fisher M.D. Director [facility] # [id number] Parts 4 and 5 both demonstrate abundant superficial squamous epithelium and mucosal fragments demonstrating intense eosinophilic inflammation with basal hyperchromasia and hypercellularity with elongated vascular papillae. The 2 areas are morphologically indistinguishable. The differential diagnosis includes eosinophilic esophagitis extending inferiorly to the gastroesophageal junction, severe reflux esophagitis extending to the mid esophagus, or combination of both. Correlation with clinical and endoscopic findings is recommended. CLINICAL HISTORY Eosinophilic esophagitis history POST-OPERATIVE DIAGNOSIS EGD: gastroesophageal junction at 38 cm; small tear with scope; trachealization; furrowing; gastric ??? edematous look unknown erythema biopsy; duodenum ??? normal; biopsy GROSS DESCRIPTION 1. The specimen is received in formalin labeled, Biopsy Gastric Antrum, and consists of a 0.6 x 0.5 x 0.2 cm aggregate of lu-white irregular soft tissue fragments which is submitted entirely in one cassette. 2. The specimen is received in formalin labeled, Biopsy Gastric Body, and consists of a 0.9 x 0.6 x 0.2 cm aggregate of lu irregular soft tissue fragments which is submitted entirely in one cassette. 3. The specimen is received in formalin labeled, Biopsy Duodenum, and consists of a 0.9 x 0.4 by up to 0.2 cm aggregate of lu irregular soft tissue fragments which is submitted entirely in one cassette. 4. The specimen is received in formalin labeled, Biopsy Distal Esophagus, and consists of a 0.6 x 0.4 x 0.1 cm aggregate of lu-white irregular soft tissue fragments which is submitted entirely in one cassette. 5. The specimen is received in formalin labeled, Biopsy Mid Esophagus, and consists of a 0.5 x 0.4 x 0.2 cm aggregate of lu irregular soft tissue fragments which is submitted entirely in one cassette. Signed by and Reported on: Chau Fisher MD 06/05 1637 END OF REPORT DEPARTMENT OF PATHOLOGY, [address] [place] [address] Chau Fisher M.D. Director [facility] # [id number] SEE RESULT BELOW Name: KRZYSZTOF MALDONADO : [address]: Michaela Hugo MD Acct: [id number] Unit: [id number] AGE: 49 Location: ENDO Re08/21/19 SEX: M Status: DEP REF SPEC: [id number] JHOAN: 08/21/19- SUBM DR: Michaela Guzman MD REQ: [id number] RECD: 08/21/194 STATUS: STEF COHEN DR: Pedrito Gibson MD _ ORDERED: LEVEL 4/5, IMMUNO-FIRST ADDENDUM An H. pylori immunohistochemical stain, with appropriately reacting controls , was performed in the evaluation of specimen 1 and is POSITIVE for Helicobacter organisms. Addendum Signed (signature on file) Ana Rosa Rider MD 08/06 1118 FINAL DIAGNOSIS 1. Stomach, antrum, biopsy: -- Moderate to severe chronic active gastritis. See comment. 2. Stomach, body, biopsy: -- Moderate chronic active gastritis. See comment. 3. Small bowel, duodenum, biopsy: -- Small bowel mucosa with normal villous architecture and no significant pathologic abnormality. -- No villous blunting or increase in lamina propria lymphoplasmacytic infiltrate identified. 4. Distal esophagus, biopsy: --Superficial squamous mucosa with severe esophagitis with eosinophilia ( greater than 50 eosinophil/HPF). See comment. -- No glandular tissue identified. 5. Midesophagus,, biopsy: -- Superficial squamous mucosa with severe esophagitis with eosinophilia ( greater than 50 eosinophil/HPF). See comment. -- No glandular tissue identified. Comment: An immunohistochemical stain for Helicobacter pylori-like organisms is pending on part 1 and will be reported in an addendum. CONTINUED ON NEXT PAGE DEPARTMENT OF PATHOLOGY, [address] [place] [address] Chau Fisher M.D. Director [facility] # [id number] Parts 4 and 5 both demonstrate abundant superficial squamous epithelium and mucosal fragments demonstrating intense eosinophilic inflammation with basal hyperchromasia and hypercellularity with elongated vascular papillae. The 2 areas are morphologically indistinguishable. The differential diagnosis includes eosinophilic esophagitis extending inferiorly to the gastroesophageal junction, severe reflux esophagitis extending to the mid esophagus, or combination of both. Correlation with clinical and endoscopic findings is recommended. CLINICAL HISTORY Eosinophilic esophagitis history POST-OPERATIVE DIAGNOSIS EGD: gastroesophageal junction at 38 cm; small tear with scope; trachealization; furrowing; gastric ??? edematous look unknown erythema biopsy; duodenum ??? normal; biopsy GROSS DESCRIPTION 1. The specimen is received in formalin labeled, Biopsy Gastric Antrum, and consists of a 0.6 x 0.5 x 0.2 cm aggregate of lu-white irregular soft tissue fragments which is submitted entirely in one cassette. 2. The specimen is received in formalin labeled, Biopsy Gastric Body, and consists of a 0.9 x 0.6 x 0.2 cm aggregate of lu irregular soft tissue fragments which is submitted entirely in one cassette. 3. The specimen is received in formalin labeled, Biopsy Duodenum, and consists of a 0.9 x 0.4 by up to 0.2 cm aggregate of lu irregular soft tissue fragments which is submitted entirely in one cassette. 4. The specimen is received in formalin labeled, Biopsy Distal Esophagus, and consists of a 0.6 x 0.4 x 0.1 cm aggregate of lu-white irregular soft tissue fragments which is submitted entirely in one cassette. 5. The specimen is received in formalin labeled, Biopsy Mid Esophagus, and consists of a 0.5 x 0.4 x 0.2 cm aggregate of lu irregular soft tissue fragments which is submitted entirely in one cassette. Signed by and Reported on: Chau Fisher MD 06/05 1637 END OF REPORT DEPARTMENT OF PATHOLOGY, [address] [place] [address] Chau Fisher M.D. Director [facility] # [id number] SEE RESULT BELOW Name: ERICAKRZYSZTOF Rachid : [address]: Michaela Hugo MD Acct: [id number] Unit: [id number] AGE: 49 Location: ENDO Re08/21/19 SEX: M Status: DEP REF SPEC: [id number] JHOAN: 08/21/19- SUBM DR: Michaela Guzman MD REQ: [id number] RECD: 08/21/19-1434 STATUS: STEF COHEN DR: Pedrito Gibson MD _ ORDERED: LEVEL 4/5, IMMUNO-FIRST ADDENDUM An H. pylori immunohistochemical stain, with appropriately reacting controls , was performed in the evaluation of specimen 1 and is POSITIVE for Helicobacter organisms. Addendum Signed (signature on file) Ana Rosa Rider MD 08/06 1118 FINAL DIAGNOSIS 1. Stomach, antrum, biopsy: -- Moderate to severe chronic active gastritis. See comment. 2. Stomach, body, biopsy: -- Moderate chronic active gastritis. See comment. 3. Small bowel, duodenum, biopsy: -- Small bowel mucosa with normal villous architecture and no significant pathologic abnormality. -- No villous blunting or increase in lamina propria lymphoplasmacytic infiltrate identified. 4. Distal esophagus, biopsy: --Superficial squamous mucosa with severe esophagitis with eosinophilia ( greater than 50 eosinophil/HPF). See comment. -- No glandular tissue identified. 5. Midesophagus,, biopsy: -- Superficial squamous mucosa with severe esophagitis with eosinophilia ( greater than 50 eosinophil/HPF). See comment. -- No glandular tissue identified. Comment: An immunohistochemical stain for Helicobacter pylori-like organisms is pending on part 1 and will be reported in an addendum. CONTINUED ON NEXT PAGE DEPARTMENT OF PATHOLOGY, [address] [place] [address] Chau Fisher M.D. Director [facility] # [id number] Parts 4 and 5 both demonstrate abundant superficial squamous epithelium and mucosal fragments demonstrating intense eosinophilic inflammation with basal hyperchromasia and hypercellularity with elongated vascular papillae. The 2 areas are morphologically indistinguishable. The differential diagnosis includes eosinophilic esophagitis extending inferiorly to the gastroesophageal junction, severe reflux esophagitis extending to the mid esophagus, or combination of both. Correlation with clinical and endoscopic findings is recommended. CLINICAL HISTORY Eosinophilic esophagitis history POST-OPERATIVE DIAGNOSIS EGD: gastroesophageal junction at 38 cm; small tear with scope; trachealization; furrowing; gastric ??? edematous look unknown erythema biopsy; duodenum ??? normal; biopsy GROSS DESCRIPTION 1. The specimen is received in formalin labeled, Biopsy Gastric Antrum, and consists of a 0.6 x 0.5 x 0.2 cm aggregate of lu-white irregular soft tissue fragments which is submitted entirely in one cassette. 2. The specimen is received in formalin labeled, Biopsy Gastric Body, and consists of a 0.9 x 0.6 x 0.2 cm aggregate of lu irregular soft tissue fragments which is submitted entirely in one cassette. 3. The specimen is received in formalin labeled, Biopsy Duodenum, and consists of a 0.9 x 0.4 by up to 0.2 cm aggregate of lu irregular soft tissue fragments which is submitted entirely in one cassette. 4. The specimen is received in formalin labeled, Biopsy Distal Esophagus, and consists of a 0.6 x 0.4 x 0.1 cm aggregate of lu-white irregular soft tissue fragments which is submitted entirely in one cassette. 5. The specimen is received in formalin labeled, Biopsy Mid Esophagus, and consists of a 0.5 x 0.4 x 0.2 cm aggregate of lu irregular soft tissue fragments which is submitted entirely in one cassette. Signed by and Reported on: Chau Fisher MD 06/05 1637 END OF REPORT DEPARTMENT OF PATHOLOGY, [address] [place] [address] Chau Fisher M.D. Director [facility] # [id number] Procedures Date Code Description Status 08/21/2019 44696 Moderate Sedation Services; Same Phys Each Additional 15 Completed Mins 08/21/2019 32141 Moderate Sedation Services; Same Phys Intl 15 Mins; PT >= Completed 5 Years 08/21/2019 54491 EGD+Biopsy Single Or Multiple Completed Medical Devices Description No Information Available Encounters Type Date Location Provider Dx Diagnosis Office Visit 06/08/2019 [facility] K20.0 Eosinophilic 3[facility] Assessments Date Code Description Provider 10/23/2019 K20.0 Eosinophilic esophagitis Michaela Hugo MD 10/23/2019 B96.81 Helicobacter pylori [H. pylori] as the Michaela Hugo MD cause of diseases classified elsewhere 10/23/2019 K29.30 Chronic superficial gastritis without Michaela Hugo MD bleeding 08/21/2019 K20.0 Eosinophilic esophagitis Michaela Hugo MD 06/08/2019 K20.0 Eosinophilic esophagitis Michaela Hugo MD Plan of Treatment No Information Available Functional Status Description No Information Available Mental Status Description No Information Available Referrals Description No Information Available
[2019-12-07 02:53] LABS: ABS Basophils 0.1 10^3/ul (0-0.2); ABS Lymphocytes 1.1 10^3/ul (1.0-4.8); ABS Monocytes 0.4 10^3/ul (0-0.8); ABS Neutrophils 4.9 10^3/ul (1.5-7.7); Eosinophil % 0.5 %; Hematocrit 40 % (42-52); Hemoglobin 13.6 g/dL (14.0-18.0); Mean Corpuscular HGB Conc 34 g/dL (31-36); Mean Corpuscular Hemoglobin 29 pg (27-31); Mean Corpuscular Volume 85 fL (80-94); Mean Platelet Volume 8.2 fL (7.4-10.4); Platelet Count 219 10^3/uL (150-450); Red Cell Distribution Width 13 % (10-15); White Blood Count 6.5 10^3/uL (3.5-10.8)
[2019-12-07 02:57] LABS: INR 1.14 (0.82-1.09)
[2019-12-07 03:08] LABS: ALT 20 U/L (7-52); AST 28 U/L (13-39); Albumin 4.4 g/dL (3.2-5.2); Albumin/Globulin Ratio 1.6 (1-3); Alkaline Phosphatase 56 U/L (34-104); Amylase 81 U/L (29-103); Anion Gap 7 mmol/L (2-11); BUN/Creatinine Ratio 5.6 (8-20); Blood Urea Nitrogen 6 mg/dL (6-24); C Reactive Protein < 1.00 mg/L (<8.01); CO2 Carbon Dioxide 28 mmol/L (22-32); Calcium 9.3 mg/dL (8.6-10.3); Chloride 100 mmol/L (101-111); EGFR African American 88.5 (>60); EGFR Non-African American 73.2 (>60); Globulin 2.8 g/dL (2-4); Glucose 99 mg/dL (70-100); Potassium 3.4 mmol/L (3.5-5.0); Sodium 135 mmol/L (135-145); Total Protein 7.2 g/dL (6.4-8.9)
--- NOTE | 2019-12-07 03:11 | ED ---
Complex/Multi-Sys Presentation - HPI Summary HPI Summary: The patient is a 49 y/o male presenting to [facility] accompanied by with a chief complaint of possibly overdosing on magnesium for the last two weeks. He reports that two weeks ago, he began treatment for H. pylori with Amoxicillin and Omeprazole, and then he was taking double his dose of magnesium to counteract a reaction that he had with Omeprazole before where he had gotten a headache. Initially he was feeling well besides sensation of dehydration, until yesterday when he began feeling intermittent episodes of fast palpitations, diarrhea, and changes in vision. Last night, around 2330, he felt worse, and then he took an Omeprazole, which helped improve his symptoms. He denies any fevers, chills, nausea, or vomiting. He notes that he has also been taking 0.125mg Ativan daily. He is not in any pain. He had a recent cold. PMHx: migraines, panic attacks, asthma. Former smoker, no EtOH, no substance use. Medications reviewed. Allergies noted. - History Of Current Complaint Chief Complaint: EDGeneral Time Seen by Provider: 12/07/19 02:23 Hx Obtained From: Patient Onset/Duration: Lasting Weeks - two, Still Present, Worse Since - last night Severity Currently: Mild Aggravating Factor(s): possibly taking more magnesium than supposed to Alleviating Factor(s): taking Omeprazole Associated Signs And Symptoms: Positive: Palpitations - fast, Other - vision changes, diarrhea; Negative: chills. Negative: Nausea, Vomiting, Fever - Allergies/Home Medications Allergies/Adverse Reactions: Allergies Allergy/AdvReac Type Severity Reaction Status Date / Time almond Allergy Unknown Verified 12/07/19 02:08 Reaction Details buckwheat Allergy Unknown Verified 12/07/19 02:08 Reaction Details coconut Allergy Unknown Verified 12/07/19 02:08 Reaction Details lactose Allergy Unknown Verified 12/07/19 02:08 Reaction Details soy Allergy Unknown Verified 12/07/19 02:08 Reaction Details MS Doxycycline [Doxycycline] AdvReac Intermediate Nausea And Verified 12/07/19 02:08 Vomiting Home Medications: Home Medications Magnesium Oxide [Mag-Oxide] 200 mg PO BID 12/07/19 [History Confirmed 12/07/19] PMH/Surg Hx/FS Hx/Imm Hx Endocrine/Hematology History: Denies: Hx Diabetes Cardiovascular History: Denies: Hx Hypertension, Hx Pacemaker/ICD Respiratory History: Reports: Hx Asthma Sensory History: Reports: Hx Contacts or Glasses Denies: Hx Hearing Aid Opthamlomology History: Reports: Hx Contacts or Glasses Neurological History: Reports: Hx Migraine Psychiatric History: Reports: Hx Panic Disorder - PANIC ATTACKS WHEN HE GETS STRESSED - Surgical History Surgical History: Yes Surgery Procedure, Year, and Place: HERNIA. VERICOSE VEIN REMOVAL - Immunization History Date of Tetanus Vaccine: unknown Date of Influenza Vaccine: UTD Infectious Disease History: No Infectious Disease History: Denies: Traveled Outside the [place] in Last 30 Days - Family History Known Family History: Positive: Other - Colon CA - Social History Alcohol Use: None Hx Substance Use: No Substance Use Type: Reports: None Hx Tobacco Use: Yes Smoking Status (MU): Former Smoker - Additional Comments History Additional Comments: migraines, panic disorder Review of Systems - ROS Summary Review of Systems Summary: Home Medications Medication Instructions Recorded Confirmed Type EPINEPHrine [Epipen 2-Jonn] 0.3 mg IM ONCE PRN 07/01/17 12/07/19 History LORazepam TAB(*) [Ativan 0.5 MG 0.125 - 0.25 mg PO BID PRN 07/01/17 12/07/19 History TAB (*)] SUMAtriptan [Imitrex] 20 mg NASAL SEE INSTRUCTIONS PRN 07/01/17 12/07/19 History Fexofenadine (NF) [Anne (NF)] 60 mg PO DAILY 08/29/18 12/07/19 History Polyethylene Glycol 3350* 17 gm PO DAILY PRN 08/13/19 12/07/19 History [Miralax*] Positive: Other - dehydration. Negative: Fever, Chills Positive: Other - visual changes Positive: Palpitations - fast Positive: Diarrhea. Negative: Vomiting, Nausea All Other Systems Reviewed And Are Negative: Yes Physical Exam - Summary Physical Exam Summary: General: Well-developed, Well-nourished male. No acute distress. HEENT: Normocephalic, Atraumatic. Eyes: Conjuctiva normal, PERRL. Oropharynx: Clear, mucous membranes moist, (-) exudates. Neck: Soft, FROM, (-) lymphadenopathy, (-) thyromegaly, (-) JVD. Cardiovascular: Normal sinus rhythm, (-) murmur. Lungs: Clear to auscultation bilaterally (-) wheezes, (-) rales, (-) rhonchi. Abdomen: Soft, non-tender, non-distended, (-) organomegaly, normal bowel sounds. Back: (-) CVA tenderness Extremities: No edema. Skin: Warm, dry, (-) rash. Neuro: Alert and oriented x3, no focal deficits. Psychiatric: Mood normal, affect normal. Triage Information Reviewed: Yes Vital Signs On Initial Exam: Initial Vitals Temp Pulse Resp BP Pulse Ox 98.9 F 75 15 142/86 100 12/07/19 02:02 12/07/19 02:02 12/07/19 02:02 12/07/19 02:02 12/07/19 02:02 Vital Signs Reviewed: Yes Procedures - Sedation Patient Received Moderate/Deep Sedation with Procedure: No Diagnostics - Vital Signs Vital Signs Temp Pulse Resp BP Pulse Ox 12/07/19 02:02 98.9 F 75 15 142/86 100 - Laboratory Lab Results: Lab Results 12/07/19 12/07/19 Range/Units 02:40 02:40 WBC 6.5 (3.5-10.8) 10^3/uL RBC 4.70 (4.18-5.48) 10^6 /uL Hgb 13.6 L (14.0-18.0) g/dL Hct 40 L (42-52) % MCV 85 (80-94) fL MCH 29 (27-31) pg MCHC 34 (31-36) g/dL RDW 13 (10-15) % Plt Count 219 (150-450) 10^3/uL MPV 8.2 (7.4-10.4) fL Neut % (Auto) 75.4 % Lymph % (Auto) 17.0 % Hubbard % (Auto) 6.3 % Eos % (Auto) 0.5 % Baso % (Auto) 0.8 % Absolute Neuts (auto) 4.9 (1.5-7.7) 10^3/ul Absolute Lymphs (auto) 1.1 (1.0-4.8) 10^3/ul Absolute Monos (auto) 0.4 (0-0.8) 10^3/ul Absolute Eos (auto) 0.0 (0-0.6) 10^3/ul Absolute Basos (auto) 0.1 (0-0.2) 10^3/ul Absolute Nucleated RBC 0.0 10^3/ul Nucleated RBC % 0.0 INR (Anticoag Therapy) 1.14 H (0.82-1.09) Result Diagrams: 12/07/19 02:40 12/07/19 02:40 Lab Statement: Any lab studies that have been ordered have been reviewed, and results considered in the medical decision making process. Re-Evaluation - Re-Evaluation First Eval Re-Evaluation Time: 04:45 Comment: I have discussed results with the patient. Discussed symptoms that warrant immediate return to ED. Complex Multi-Symp Course/Dx Course Of Treatment: 49-year-old male presents with multiple complaints. Significant concerns regarding recent course of omeprazole due to gastric ulcer. Worried about getting a migraine like he did last time he was on omeprazole. To prevent that he is been taking high doses of magnesium. Woke up last night not feeling well. Has noticed increased fluctuations in his heart rate. Has had some loose stools. Patient appears to be fairly anxious in general. Exam essentially within normal limits. Blood work essentially within normal limits. Patient discharged to home. Advised follow-up with PCP. Follow sooner for any worsening symptoms. - Diagnoses Provider Diagnoses: Weakness Discharge ED - Sign-Out/Discharge Documenting (check all that apply): Patient Departure - Patient will be discharged home. - Discharge Plan Condition: Stable Disposition: HOME Patient Education Materials: Weakness (ED) Referrals: Pedrito Gibson MD [Primary Care Provider] - 3 Days Additional Instructions: Your labs were normal today, your magnesium is within normal limits. Please follow up with your primary care physician within three days. Please return to ED for any new or worsening symptoms. - Billing Disposition and Condition Condition: STABLE Disposition: Home - Attestation Statements Document Initiated by Scribe: Yes Documenting Scribe: Kayley Klein Provider For Whom Fidel is Documenting (Include Credential): Dr. Little Guevara MD Scribe Attestation: Kayley Sanchez scribed for Dr. Little Guevara MD on 12/07/19 at 0608. Scribe Documentation Reviewed: Yes Provider Attestation: The documentation as recorded by the Kayley lackey accurately reflects the service I personally performed and the decisions made by me, Dr. Little Guevara MD Status of Scribe Document: Viewed
[2019-12-07 03:23] LABS: Urine Appearance Clear; Urine Bilirubin Negative (Negative); Urine Blood Negative (Negative); Urine Color Straw; Urine Glucose Negative (Negative); Urine Ketones Negative (Negative); Urine Nitrite Negative (Negative); Urine Protein Negative (Negative); Urine Specific Gravity 1.002 (1.010-1.030); Urine Urobilinogen Negative (Negative)
[2019-12-07 04:58] VITALS: BP 121/75
== END 2019-12-07 04:56 | disposition home or self-care (01) ==
LOC: ED 02:01
DX: R53.1 Weakness (principal); R00.2 Palpitations; R19.7 Diarrhea, unspecified; H53.9 Unspecified visual disturbance; Z88.1 Allergy status to other antibiotic agents; Z91.011 Allergy to milk products; Z91.018 Allergy to other foods; Z87.891 Personal history of nicotine dependence
CPT/HCPCS: 36415; 80053; 81003; 82150; 83605; 83690; 83735; 85025; 85610; 86140; 99283